=== PATIENT | male | born 1950 | race Asian ===

== ENCOUNTER 2019-01-27 23:33 | Emergency (ER) | payer OTHER, BC ==
[~2019-01-27] VITALS: Ht 160 cm; Wt 56.7 kg
[2019-01-27 23:40] VITALS: BP 100/57
--- NOTE | 2019-01-27 23:43 | NUR ---
TO LOBBY A/W BED VIA W/C
--- NOTE | 2019-01-28 01:14 | NUR ---
PT TAKEN TO ER BED 6 VIA W/C
--- NOTE | 2019-01-28 01:33 | NUR ---
68 Y/O M BIB [facility] WITH C/O VOMITTING AND FEVER [id number]. PT FAMILY REPORTS TEMPERATURE OF 103 AT HOME, NO MEDICATION GIVEN DUE TO PT'S LIVER TRANSPLANT AND CANNOT TAKE NSAIDS. PT FAMILY STATES "HE ATE ALOT OF AYAD YESTERDAY AND AFTER HE THREW UP,HE SAID HE FELT BETTER." PT DENIES DIARRHEA, ABD PAIN, AND SICK CONTACTS. ABDOMEN SOFT AND NON-TENDER. BOWEL SOUNDS PRESENT [id number]. FAMILY AT BEDSIDE. WILL CONTINUE TO MONITOR.
[2019-01-28] MEDS ORDERED: DICYCLOMINE HCL LIQUID 20 MG, ALUMINUM HYD/MAG/SIMETHICONE 30 ML, LIDOCAINE VISCOUS 2% ... PO ONE ×3 (02:30)
[2019-01-28] MEDS ORDERED: NACL 0.9% 1,000 ML IV ONE (02:30)
[2019-01-28] MEDS ORDERED: ONDANSETRON 4 MG/2 ML VIAL IVP ONE (02:30)
--- NOTE | 2019-01-28 02:38 | NUR ---
PT AWAKE AND ALERT. PT FEELS WARM TO TOUCH. BLANKET REMOVED FROM PT. FAMILY AT BEDSIDE. WILL CONTINUE TO MONITOR.
[2019-01-28 03:08] LABS: HEMATOCRIT 43.7 % (36-52); HEMOGLOBIN 14.4 g/dL (12.0-18.0); MEAN CORPUSCULAR HEMOGLOBIN 28 pg (27-31); MEAN CORPUSCULAR HGB CONC 33 g/dL (33-37); MEAN CORPUSCULAR VOLUME 85.2 fL (80-94); PLATELET COUNT (AUTO) 194 K/uL (140-450); RED BLOOD CELL COUNT(AUTO) 5.13 MIL/uL (4.20-6.10)
[2019-01-28 03:29] LABS: ANION GAP 14.4 (8-16); CARBON DIOXIDE 27.1 mmol/L (21-32); POTASSIUM 3.5 mmol/L (3.5-5.1)
[2019-01-28 03:33] LABS: ALBUMIN 3.7 g/dL (3.4-5.0); TOTAL BILIRUBIN 3.7 mg/dL (0.0-1.0)
[2019-01-28 03:39] LABS: WHITE BLOOD COUNT (AUTO) 16.7 K/uL (4.8-10.8)
[2019-01-28 03:41] LABS: EOSINOPHILS % (MANUAL) 1 % (0-4); LYMPHOCYTES % (MANUAL) 3 % (20-46); MONOCYTES % (MANUAL) 2 % (5-12)
--- NOTE | 2019-01-28 04:00 | NUR ---
PT FAMILY PROVIDED NUMBER FOR TRANSPLANT SURGEON, DR. JAZLYN JAMES- [phone]
--- NOTE | 2019-01-28 04:30 | NUR ---
ULTRASOUND AT BEDSIDE.
[2019-01-28] MEDS ORDERED: cefTRIAXone 1,000 MG VIAL ONE ×2 (04:35)
--- NOTE | 2019-01-28 05:20 | NUR ---
PT PROVIDED URINAL. APPROXIMATELY 200ML OF YELLOW URINE NOTED.
[2019-01-28] MEDS ORDERED: ENTE0.5T2 PO (05:42)
[2019-01-28] MEDS ORDERED: INSU100S45 SUBQ (05:42)
[2019-01-28] MEDS ORDERED: CEL250 PO (05:42)
[2019-01-28] MEDS ORDERED: ESOM40EC PO (05:42)
[2019-01-28] MEDS ORDERED: PRO.5 PO (05:42)
--- NOTE | 2019-01-28 06:03 | NUR ---
PT AWAKE AND LYING SUPINE. VSS. FAMILY AT BEDSIDE. ALL NEEDS MET AT THIS TIME. [facility] CONTINUE TO MONITOR.
--- NOTE | 2019-01-28 07:10 | NUR ---
CALLED TO GIVE REPORT FOR PT TRANSFER. SPOKE WITH DEONNA, WHO STATED THAT THE RN ACCEPTING THE PT COULD NOT TAKE REPORT AT THIS TIME. CHARGE NURSE ALSO NOT AVAILABLE. WILL CALL BACK.
--- NOTE | 2019-01-28 07:14 | NUR ---
BEDSIDE REPORT GIVEN TO RONAL WOOD. TRANSFER OF CARE AT THIS TIME.
--- NOTE | 2019-01-28 07:44 | NUR ---
Patient to be transferred to [facility]. Is being transferred due to request/services not available at this facility. Receiving facility has accepting physician and available space. ER physician has signed transfer form. Patient or responsible constitution party has agreed to transfer and signed form. Patient belongings inventoried and will be sent with patient. Copy of nursing notes, lab reports, EKG, Physicians Orders and X-rays to be sent with patient. Report called to Andreea VILLEDA at receiving facility. [facility] ambulance service has been called for transfer. ETA for ambulance to [place] is 45 minutes.
[2019-01-28 08:08] VITALS: BP 129/71
== END 2019-01-28 07:44 | disposition short-term general hospital (02) ==
LOC: MED 23:33
DX: R50.9 Fever, unspecified (principal); R79.89 Other specified abnormal findings of blood chemistry; R11.2 Nausea with vomiting, unspecified; Z94.4 Liver transplant status; Z87.448 Personal history of other diseases of urinary system; Z79.4 Long term (current) use of insulin; Z79.899 Other long term (current) drug therapy; Z88.6 Allergy status to analgesic agent
CPT/HCPCS: 36415; 76705; 80053; 82150; 83605; 83690; 85025; 87040; 96361; 96365; 96375; 99285; J0696; J2405; J7060; Q0092; J7030